=== PATIENT | male | born 1965 | race Caucasian/White ===

== ENCOUNTER 2016-12-29 17:55 | Observation (INO) | payer OTHER ==
[2016-12-29] VITALS (8 sets, daily range): BP systolic 126–167; BP diastolic 74–105; PULSE 73–90; RESP 15–21; O2SAT 94–98
[~2016-12-29] VITALS: Ht 172.7 cm; Wt 103.2 kg
--- NOTE | 2016-12-29 17:58 | ED.REPORT ---
HPI-General Illness Date of Service Dec 29, 2016 ED Provider: Dr. Shila Suarez MD A 51 year old male with a history of hyperlipidemia presents to the ED complaining of chest pain that began 20 minutes prior to arrival. Associated symptoms include SOB, back pain and neck pain. Patient was reportedly sitting watching TV when his symptoms began. The SOB is exacerbated by deep breath. Pain has been constant since onset. He rates his current pain as an 8/10 and the pain radiates from his chest across his shoulders, more so on the right.Patient currently takes Simvastatin. He denies any recent cough, fever, or chills. Nursing Notes Stated Complaint: POSSIBLE HEART ATTACK Nursing Notes Reviewed: Yes Allergies: Coded Allergies: No Known Allergies (Unverified , 12/29/16) Scheduled Simvastatin (Simvastatin) 40 Mg Tablet 40 MG PO HS General Time Seen by MD: 17:59 Chief Complaint Chest pain Hx Obtained From: Patient Arrived By: Walk-in Sudden in Onset?: Yes Onset Occurred: 16 - 30 minutes ago (20 min) Symptom Duration: Since onset Location: : Back: Chest: Neck Quality: Painful Radiation: : Shoulder Severity: Current: Pain level 8 out of 10 Severity: Maximum: Pain level 8 out of 10 Associated with: Reports: Chest pain, Difficulty breathing, Shortness of breath Pertinent Negative: Pt denies other symptoms Recent Healthcare: No recent doctor visit, No recent hospitalization Past Medical History Past Medical History Hyperlipidemia Past Surgical History Reports: Tonsillectomy Smoking History Light Tobacco Smoker (Chews Tobacco) Social History Other Social History: Local resident Ambulatory Status Independent Review of Systems Full Review of Systems Constitutional: Denies: Chills, Fever Respiratory: Reports: Shortness of breath, Denies: Non-productive cough Cardiovascular: Reports: Chest pain GI: Denies: Abdominal pain, Nausea, Vomiting Musculoskeletal: Reports: Back pain, Joint swelling (Pain radiates to his shoulders), Neck pain Neurologic: Denies: Change LOC Complete sys rev & neg: except as marked. Physical Exam BP 1803 167/105 Vital Signs Vital Signs Date Time Temp Pulse Resp B/P Pulse Ox O2 Delivery O2 Flow Rate FiO2 12/29/16 21:12 80 16 132/77 97 Room Air 12/29/16 20:47 75 15 126/74 97 Room Air 12/29/16 19:36 73 21 143/85 96 Room Air 12/29/16 18:27 82 15 130/74 98 Nasal Cannula 2 12/29/16 18:10 90 20 165/103 98 Nasal Cannula 2 167/105 12/29/16 18:03 37.1 83 19 167/105 97 Room Air Initial VS: Reviewed Neck: Supple, Non-tender, Full range of motion Neurologic: Alert, Oriented, Nonfocal Psychiatric: Mood/affect normal, Behavior normal, Normal thought content General/Constitutional: Awake, Alert Distress / Hydration: Positive: Distress mild Head / Eyes: Atraumatic, Normocephalic, PERRL Respiratory / Chest: Atraumatic RESPIRATORY: Patient has difficulty catching breath due to pain Cardiovascular: Heart rate NL, Regular rhythm, Heart sounds NL CARDIO: hypertensive Abdomen: Atraumatic, Soft Upper Extremities Upper Extremity / MS: Atraumatic, Inspection NL, Neurologic intact, Vascular intact Lower Extremity / Pelvis / MS: Atraumatic, Neurologic intact, Vascular intact LOWER EXTREMITIES: No evidence of lower extremity edema Skin: Atraumatic, Color NL, Warm Color / Condition: Positive: Diaphoresis present Interpretation & Diagnostics Lab Results Interpretation Result Diagram: 12/29/16 1806 12/29/16 1806 Test 12/29/16 18:06 12/29/16 20:00 White Blood Count 11.1th/mm3 (3.8-10.1) Red Blood Count 4.62mil/mm3 (4.40-5.80) Hemoglobin 14.9g/dL (13.8-17.2) Hematocrit 42.4% (41.0-50.0) Mean Corpuscular Volume 91.8fL (81-100) Mean Corpuscular Hemoglobin 32.3pg (27.0-35.0) Mean Corpuscular Hemoglobin Concent 35.1% (32.0-37.0) Red Cell Distribution Width 12.3% (12.3-15.4) Platelet Count 206bil/L (150-400) Neutrophils (%) (Auto) 62.8% (40-74) Lymphocytes (%) (Auto) 25.0% (14-46) Monocytes (%) (Auto) 8.6% (4-12) Eosinophils (%) (Auto) 2.9% (0-5) Basophils (%) (Auto) 0.4% (0-3) Sodium Level 138mEq/L (134-144) Potassium Level 3.7mEq/L (3.5-5.2) Chloride Level 101mEq/L (97-108) Carbon Dioxide Level 21mmol/L (18-29) Blood Urea Nitrogen 10mg/dL (6-24) Creatinine 0.78mg/dL (0.76-1.27) Estimat Glomerular Filtration Rate 112mL/min (>59) Glucose Level 89mg/dL (60-99) Calcium Level 8.6mg/dL (8.5-10.1) Magnesium Level 2.2mg/dL (1.6-2.6) Total Bilirubin 0.7mg/dL (0.0-1.2) Aspartate Amino Transf (AST/SGOT) 27U/L (0-50) Alanine Aminotransferase (ALT/SGPT) 23U/L (0-44) Alkaline Phosphatase 68U/L (25-150) Total Protein 7.6g/dL (6.4-8.4) Albumin 4.5g/dL (3.4-5.0) Hold Knutson Top Tube Received (Received) Troponin T < 0.010ug/L (0.0-0.011) ECG Interpretation ECG Interpretation: Normal sinus rhythm Rate 81 Time: 18:01 Interpreted by: ED physician ECG Interpretation: Rate 70 Sinus Rhythm No changes No ischemia Time: 20:33 Interpreted by: ED physician Repeat ECG: Repeat ECG unchanged CT Abd / Pelvis Interpretation IMPRESSION: 1. No evidence of aortic dissection or aortic aneurysm. 2. 2 mm nonobstructing left renal stone. 3. No acute lung opacities. Dictated by: Tracy Campbell MD, PhD on 12/29/2016 at 18:34 Study type: Abdominal CT IV contrast, Abdom CT oral contrast Interpretation / Wet Read by: Interpret - Radiologist Re-Eval/Medical Decision Med Decision/Clinical Course 51-year-old nonsmoker with significant hypertension hypercholesterolemia presents with acute onset chest pain radiating through the chest through to back and up to his head. Initial enzymes and EKGs are unremarkable. CT scan rules out aortic dissection. Pain is resolved after 4 nitroglycerin. On further questioning he has had similar symptoms over the last month or so with decreasing effort required prior to developing pain and this morning it did develop at rest. He has also had increasing fatigue and increasing exertional dyspnea. Given history with increasing symptoms, and this morning symptoms occurring at rest, I would like to keep him in the hospital for additional observation and cardiac risk stratification tomorrow. Nitropaste is placed in the emergency department and he is given subcutaneous Lovenox. Time of Eval: 19:30 Patient Status: Condition resolved Re-Evaluation/Progress Note: Patient is rechecked. His symptoms have resolved. He is informed of his results and diagnosis. Recommendation for stress test is given. All of the patient's questions are addressed. He understands and agrees with the treatment plan to admit. Consultation : Referral / Consult Name: David Garcia MD Call Returned at: 20:33 Document Control Supervisor: Will see patient, Agrees with eval, Agrees with plan, Accepts admit Counseled Regarding: Diagnosis, Lab results, Need for admission Discharge & Departure Primary Impression: Acute coronary syndrome Disposition: ADMITTED TO HOSPITAL Discharge Condition All VS Reviewed: Yes Condition: Stable Referrals: Polo Méndez MD (PCP) Ayeshaibbill Attestation Portions of this note were transcribed by Anastasia Dyer. I, Dr. Suarez personally performed the history, physical exam and medical decision-making; I reviewed and confirmed the accuracy of the information in the transcribed note. Signed by: Melinda Kelly, 12/29/16 2100. copies to: Polo Méndez MD, Shawna L MD Dec 29, 2016 17:58 ANASTASIA DYER Dec 29, 2016 18:05
[2016-12-29 18:14] LABS: BASOPHILS % (AUTO) 0.4 % (0-3); EOSINOPHILS % (AUTO) 2.9 % (0-5); MONOCYTES % (AUTO) 8.6 % (4-12); Mean Corpuscular Hemoglobin 32.3 pg (27.0-35.0); Mean Corpuscular Volume 91.8 fL (81-100); NEUTROPHILS % (AUTO) 62.8 % (40-74); Platelet Count 206 bil/L (150-400)
--- NOTE | 2016-12-29 18:41 | DRSVH ---
PROCEDURE: CT ANG CHEST/ABD W/WO CONTRAST ([id number]) INDICATIONS: acute Chest pain TECHNIQUE: Precontrast 5 mm thick sections acquired from the lung apices to the iliac crests. After the adminis tration of intravenous contrast, 3 mm thick sections again acquired from the lung apices to the iliac crests. 3-dimensional maximum intensity projection (MIP) oblique sagittal and coronal reformats wer e then acquired, and/or 3-dimensional volume rendering reformats. For radiation dose reduction, the following was used: automated exposure control. COMPARISON: None. FINDINGS: Image quality: Excellent. AORTA: Intramural hematoma: Absent Maximum hematoma thickness: Not applicable Focal contrast enhancement: Intramural blood pool (< 2 mm neck or imperceptible communication with aortic lumen): Absent. Ulcer-like projection (broad communication with aortic lumen > 3 mm): Absent. Dissection: Absent Anibal classification: Not applicable Maximum aortic diameter: 3.1 cm. [If Anibal A dissection, > 5.0 cm has a poorer prognosis. If [place] B dissection, > 4.0 cm has a poorer prognosis.] Periaortic hematoma: Absent. CHEST: Lungs and pleura: No acute airspace opacities. No pleural effusions or pneumothorax. Central and p eripheral airways are patent and normal in caliber. Mediastinum: Heart size is normal. No pericardial effusion. No mediastinal or hilar adenopathy by size criteria. Central pulmonary arteries are normal in size. Esophagus is normal in caliber. No h iatal hernias. Bones and chest wall: No axillary adenopathy by size criteria. Thyroid gland is within normal limit s. No suspicious bony lesions. No vertebral body compression fractures. ABDOMEN: Vasculature: Celiac trunk and mesenteric arteries are patent. Renal arteries are also patent. Solid organs: Liver and spleen are normal in size. Gallbladder is within normal limits. Biliary sy stem is non dilated. Pancreas enhances normally. No adrenal nodules. Both kidneys are normal in si ze and enhancement, without hydronephrosis. 2 mm nonobstructing stone noted in the left kidney. Peritoneum and bowel: No free fluid or air. Bowel loops are normal in caliber and wall thickness. T he appendix is normal. Nodes and vessels: No retroperitoneal or mesenteric adenopathy by size criteria. Inferior vena cava is normal in morphology. Atherosclerotic calcifications are noted in the abdominal aorta and the vis ualized common iliac arteries. Bones: No suspicious bony lesions. No vertebral body compression fractures. Spine degenerative disc disease and facet arthropathy are noted. Miscellaneous: No ventral hernias. IMPRESSION: 1. No evidence of aortic dissection or aortic aneurysm. 2. 2 mm nonobstructing left renal stone. 3. No acute lung opacities. Dictated by: Tracy Campbell MD, PhD on 12/29/2016 at 18:34 Approved by: Tracy Campbell MD, PhD on 12/29/2016 at 18:40
[2016-12-29 18:42] LABS: TROPONIN T < 0.010 ug/L (0.0-0.011)
[2016-12-29 18:51] LABS: Magnesium 2.2 mg/dL (1.6-2.6)
[2016-12-29] MEDS ORDERED: SIMV40TA5 PO (20:09)
[2016-12-29] MEDS ORDERED: Nitroglycerin 2% 1 Gm Ointment TOPICAL ONE (20:40)
[2016-12-29] MEDS ORDERED: Atropine 1 mg/10 mL (Code) Syringe IVPUSH PRN (20:45)
[2016-12-29] MEDS ORDERED: Senna-Docusate 8.6-50 mg Tablet PO PRN (20:45)
[2016-12-29] MEDS ORDERED: Polyethylene Glycol (PEG) 17 Gm Powder PO PRN (20:45)
[2016-12-29] MEDS ORDERED: Alum-Mag Hydrox-Simeth 30 mL Suspension PO PRN (20:45)
[2016-12-29] MEDS ORDERED: Ondansetron 2 mg/mL 2 mL Inj IVPUSH PRN (20:45)
--- NOTE | 2016-12-29 22:21 | PCM.HPMED ---
Subjective Date of Service Dec 29, 2016 Primary Provider: Admitting Physician: Primary Care Physician: Polo Méndez MD Attending Physician: Admit Status: From the Emergency Department, 23-Hour Observation, Remote Telemetry Chief Complaint: Chest pain History of Present Illness: Ari Estes is a 51 year old male with Hyperlipidemia, Tobacco chewer who presents to the [facility] emergency department complaining of chest pain that began 20 minutes prior to arrival. Patient was reportedly sitting watching TV when his symptoms began. The pain started in his back around his right side that seemed to radiate to the front of his chest into his left neck, achy pain, 7/10 intensity. Associated symptoms pain exacerbated with deep breathes. Denies any diaphoresis or nausea. Pain has been constant since onset. He reported a similar but mild chest pain he experienced a month ago while cutting some wood for his Mom. Pain located left anterior chest, without any radiation, constant pain that resolved spontaneously Patient currently takes Simvastatin. He denies any recent cough, fever, or chills. Case discussed with Dr Cespedes, pain persisted but then improved with nitropaste. Troponin negative x 2 but will be admitted for a stress study Review of Systems: Pertinent positives as noted in HPI. All other systems were reviewed and are negative Allergies Coded Allergies: No Known Allergies (Unverified , 12/29/16) Home Medications From [facility], not yet confirmed Ari Estes. [id number] 1965 09/08/2016 03:30 PM Page: 10/13 nabumetone 750 mg tablet take 1 tablet by oral route 2 times every day simvastatin 40 mg tablet take 1 tablet by oral route every day in the evening PMH Hyperlipidemia Sprain of medial collateral ligament of left knee. Work related injury . Surgical History None reported Family History Brother is diabetic Father from COPD and had throat cancer. He was a smoker Social History Hx Alcohol Use: Yes ("OCCASIONAL") Hx Substance Use: No Hx Tobacco Use: Yes Smoking Status: Light Tobacco Smoker (Chews Tobacco) Living Arrangement: with Family Exam Vital Signs Vital Sign - Last Date Time Temp Pulse Resp B/P Pulse Ox O2 Delivery O2 Flow Rate FiO2 12/29/16 19:36 73 21 143/85 96 Room Air 12/29/16 18:27 2 12/29/16 18:03 37.1 Exam General: Alert, Oriented X3, Cooperative, No acute Distress Eyes: PERRLA, Scleral Anicteric Mouth: Mouth Normal, Mucous Membranes Moist/[place] Neck: Supple, no Thyromegaly, trachea central. Chest & Lungs: Clear to auscultation & percussion, No adventitious breath sounds, no crackles, no wheeze Cardiovascular: Normal S1, Normal S2, No Murmurs/Rubs/Gallops, Regular Rate/ Rhythm,(No JVD, no peripheral edema) Pulses: Radial (present and equal), Dorsalis Pedi (present and equal) Abdomen: Soft, Non-tender, Non-distended, Normoactive bowel tones. Musculoskeletal: Unremarkable. Normal range of motion, no swollen or erythematous joints Extremities: No edema, no cyanosis, no clubbing. Skin: No rashes. Warm and dry, no erythematous areas Neurological: Grossly neurologically intact, Normal Speech, Sensation Intact Lymphatic: Lymph nodes Cervical and Axillary not palpable. Lab and Diagnostics Labs Laboratory Tests Test 12/29/16 18:06 12/29/16 20:00 White Blood Count 11.1th/mm3 (3.8-10.1) Red Blood Count 4.62mil/mm3 (4.40-5.80) Hemoglobin 14.9g/dL (13.8-17.2) Hematocrit 42.4% (41.0-50.0) Mean Corpuscular Volume 91.8fL (81-100) Mean Corpuscular Hemoglobin 32.3pg (27.0-35.0) Mean Corpuscular Hemoglobin Concent 35.1% (32.0-37.0) Red Cell Distribution Width 12.3% (12.3-15.4) Platelet Count 206bil/L (150-400) Neutrophils (%) (Auto) 62.8% (40-74) Lymphocytes (%) (Auto) 25.0% (14-46) Monocytes (%) (Auto) 8.6% (4-12) Eosinophils (%) (Auto) 2.9% (0-5) Basophils (%) (Auto) 0.4% (0-3) Sodium Level 138mEq/L (134-144) Potassium Level 3.7mEq/L (3.5-5.2) Chloride Level 101mEq/L (97-108) Carbon Dioxide Level 21mmol/L (18-29) Blood Urea Nitrogen 10mg/dL (6-24) Creatinine 0.78mg/dL (0.76-1.27) Estimat Glomerular Filtration Rate 112mL/min (>59) Glucose Level 89mg/dL (60-99) Calcium Level 8.6mg/dL (8.5-10.1) Magnesium Level 2.2mg/dL (1.6-2.6) Total Bilirubin 0.7mg/dL (0.0-1.2) Aspartate Amino Transf (AST/SGOT) 27U/L (0-50) Alanine Aminotransferase (ALT/SGPT) 23U/L (0-44) Alkaline Phosphatase 68U/L (25-150) Troponin T < 0.010ug/L (0.0-0.011) < 0.010ug/L (0.0-0.011) Total Protein 7.6g/dL (6.4-8.4) Albumin 4.5g/dL (3.4-5.0) Hold Knutson Top Tube Received (Received) Result Diagram: 12/29/16 18012/29/161805 X-Rays, CTs and MRIs CT ANG CHEST/ABD W/WO CONTRAST 12/29 IMPRESSION: 1. No evidence of aortic dissection or aortic aneurysm. 2. 2 mm nonobstructing left renal stone. 3. No acute lung opacities. Dictated by: Tracy Campbell MD, PhD on 12/29/2016 at 18:34 Approved by: Tracy Campbell MD, PhD on 12/29/2016 at 18:40 Assessment & Plan Ari Estes is a 51 year old male with Hyperlipidemia presents to the [facility] emergency department complaining of chest pain 1. Acute Chest pain. Present on admission. Now resolved Risk factors for acute coronary syndrome includes age, Hyperlipidemia and nicotine dependence. Aortic dissection and Pulmonary embolism ruled out with CT scan. - monitor on telemetry - nothing by mouth after midnight - echo and exercise stress test (with Lexiscan) tomorrow - trending cardiac biomarkers 2. Hyperlipidemia. Chronic Presumed stable - checking lipids - continuing statin 3. Nicotine dependence with tobacco chewing. Cessation discussed and encouraged - Nicotine patch on patients request - Acetaminophen as needed for mild pain/fever/headache - Bowel regimen as needed - Antiemetic as needed Patient is admitted under observation status with expected length of stay less than 2 midnights due to severity of presenting symptoms, risk of adverse event, and complexity of treatment plan. . Resuscitation Status: CPR: Attempt Resuscitation David Garcia MD Dec 29, 2016 20:46
[2016-12-29] MEDS: 0.9% Sodium Chloride 1,000 ML IV SCH (22:24)
--- NOTE | 2016-12-29 23:08 | NUR ---
Admit to room 3028 @21:40 with Acute Coronary Syndrome. A&Ox3, up independent, Pain 0/10, VSS O2 Sat 97% on RA. Oriented to room and POC on whiteboard.
--- NOTE | 2016-12-29 23:18 | NUR ---
Med Rec Done in ED, verified by patient interview.
[2016-12-30] VITALS (7 sets, daily range): BP systolic 101–136; BP diastolic 58–74; PULSE 54–68; RESP 18–20; O2SAT 92–98
[2016-12-30] MEDS: Sodium Chloride LOK Flush 10 mL Syringe IVFLUSH SCH ×3 (00:05→18:02)
[2016-12-30] MEDS: Heparin 5,000 Unit/mL Inj SUBQ SCH ×3 (00:05→18:01)
[2016-12-30 02:40] LABS: BASOPHILS % (AUTO) 0.4 % (0-3); EOSINOPHILS % (AUTO) 2.2 % (0-5); MONOCYTES % (AUTO) 11.6 % (4-12); Mean Corpuscular Hemoglobin 32.5 pg (27.0-35.0); Mean Corpuscular Volume 92.7 fL (81-100); NEUTROPHILS % (AUTO) 57.8 % (40-74); Platelet Count 181 bil/L (150-400)
[2016-12-30 03:29] LABS: Creatine Kinase 323 U/L (21-232)
[2016-12-30] MEDS: 0.9% Sodium Chloride 1,000 ML IV SCH ×2 (09:11→21:41)
--- NOTE | 2016-12-30 10:13 | PCM.PNMED ---
Subjective Date of Service Dec 30, 2016 Subjective - Pt seen and examined bed side. He is AAO x 3. Not in acute distress - c/o mild chest pain on deep inspiration. Also c/o difficulty in swallowing and throat irritation with mild choking sensation. - Denies shortness of breath. Exam Vital Signs Vital Sign - Last Date Time Temp Pulse Resp B/P Pulse Ox O2 Delivery O2 Flow Rate FiO2 12/30/16 08:52 36.4 54 18 136/68 92 Room Air 12/29/16 18:27 2 Intake and Output 12/29/16 12/29/16 12/30/16 Cumulative From/Thru 15:00 23:00 07:00 12/29/16 18:03 - 12/30/16 06:37 Intake Total 641 ml 641 ml Balance 641 ml 641 ml IV Total 641 ml 641 ml # Voids 0 0 Exam General: Alert, Oriented X3, Cooperative, No acute Distress Eyes: PERRLA, Scleral Anicteric Mouth: Mouth Normal, Mucous Membranes Moist/[place] Neck: Supple, no Thyromegaly, trachea central. Chest & Lungs: Clear to auscultation & percussion, No adventitious breath sounds, no crackles, no wheeze Cardiovascular: Normal S1, Normal S2, No Murmurs/Rubs/Gallops, Regular Rate/ Rhythm,(No JVD, no peripheral edema) Pulses: Radial (present and equal), Dorsalis Pedi (present and equal) Abdomen: Soft, Non-tender, Non-distended, Normoactive bowel tones. Musculoskeletal: Unremarkable. Normal range of motion, no swollen or erythematous joints Extremities: No edema, no cyanosis, no clubbing. Skin: No rashes. Warm and dry, no erythematous areas Neurological: Grossly neurologically intact, Normal Speech, Sensation Intact Lymphatic: Lymph nodes Cervical and Axillary not palpable. IVs and Medications Medications Reviewed: Medications were reviewed in detail Lab and Diagnostics Result Diagram: 12/30/165 12/30/16234 X-Rays, CTs and MRIs CT ANG CHEST/ABD W/WO CONTRAST 12/29 IMPRESSION: 1. No evidence of aortic dissection or aortic aneurysm. 2. 2 mm nonobstructing left renal stone. 3. No acute lung opacities. Dictated by: Tracy Campbell MD, PhD on 12/29/2016 at 18:34 Approved by: Tracy Campbell MD, PhD on 12/29/2016 at 18:40 Assessment & Plan 51 year old male with Hyperlipidemia presents to the [facility] emergency department complaining of chest pain 1. Acute Chest pain. Present on admission. Now resolved Risk factors for acute coronary syndrome includes age, Hyperlipidemia and nicotine dependence. Aortic dissection and Pulmonary embolism ruled out with CT scan. - monitor on telemetry - nothing by mouth for test. Will resume diet after stress test. - echo and exercise stress test (with Lexiscan) later today - troponin x 2: negative 2. Hyperlipidemia. Chronic - Lipid panel: TC: 158, LDL: 94, T - continuing statin 3. Nicotine dependence with tobacco chewing. Cessation discussed and encouraged - Nicotine patch on patients request - Acetaminophen as needed for mild pain/fever/headache - Bowel regimen as needed - Antiemetic as needed Patient is admitted under observation status with expected length of stay less than 2 midnights due to severity of presenting symptoms, risk of adverse event, and complexity of treatment plan. . Resuscitation Status: CPR: Attempt Resuscitation John Paul Ward MD Dec 30, 2016 10:13
--- NOTE | 2016-12-30 14:07 | NUR ---
Social Work: Screening Data: Pt is a 51 y/o male admitted for acute coronary syndrome. Pt's PCP is Dr Méndez, pt's insurance is [employer]. EMR reviewed. No d/c planning needs anticipated at this time. HEATING MECHANIC will continue to follow if needs arise. Assessment: Pt who is independent at baseline. Plan: Pt will d/c home via POV when medically stable. No d/c planning needs anticipated at this time. HEATING MECHANIC will continue to follow if needs arise. THOMAS Moreno
--- NOTE | 2016-12-30 15:55 | DRSVH ---
[facility] [address] [place] [address] Echocardiogram Report Name: CHRISTOPHER GEORGE MStudy Date: 12/30/2016 Height: 68 in Hospital Exam Location: [facility] Weight: 225 lb Gender: Male BSA: 2.1 m2 : 1965 Age: 51 yrs BP: 119/74 mmHg Reason For Study: Chest pain Ordering Physician: HOSPITALIST [facility] Performed By: Abdiel Jenkins Referring Physician: CORDELL CANTOR Interpretation Summary Normal both left and right ventricular size and function. The ejection fraction is 60-65%. Normal both atria. Trace mitral regurgitation. Procedure: A two-dimensional transthoracic echocardiogram with color flow and Doppler was performed. The study quality was technically adequate. There is no prior echocardiogram noted for this patient. The patient was in normal sinus rhythm during the exam. Left Ventricle: The left ventricle is normal in size, wall thickness, and systolic function without any focal wall motion abnormalities. The ejection fraction is estimated to be 60-65%. Assessment of diastolic parameters indicates normal left ventricular diastolic function and normal filling pressures. Right Ventricle: The right ventricle is normal in size, thickness and function. Atria: Both atria are normal in size. The interatrial septum is intact with no evidence for an atrial septal defect. Mitral Valve: The mitral valve is normal. There is trace mitral regurgitation. Aortic Valve: The aortic valve is normal in structure and function. No aortic regurgitation is present. Tricuspid Valve: The tricuspid valve is normal. Pulmonary artery pressures cannot be estimated because of the lack of a measurable TR jet velocity. There is a trace or physiologic amount of tricuspid regurgitation. Pulmonic Valve: The pulmonic valve leaflets are thin and pliable; valve motion is normal. There is no pulmonic valvular regurgitation. Great Vessels: The aortic root is normal size. The dimensions of the ascending aorta are normal. The pulmonary artery is normal size. The IVC is of normal diameter and collapses greater than 50% with a sniff. This suggests a low right atrial pressure of 3 mm Hg. Pericardium/ Pleura There is no pericardial effusion. There is no pleural effusion. MMode/2D Measurements & Calculations LVIDd: 5.0 cm RA long axis LVOT diam: 2.2 cm LVIDs: 2.8 cm LA A2 area: 17.1 cm AoV Opening FS: 42.9 % LA A4 area: 20.2 cm RA area EPSS: 0.09 cm LA length (vol) Ao root diam IVSd: 0.94 cm : 14.4 cm LVPWd: 0.88 cm LA vol: 54.3 ml RA vol asc Aorta Diam LA vol index : 31.5 ml RA Ao Arch Diam (Prox : 14.6 mm2 Trans): 3.1 cm IVC diam: 1.0 cm LV david. diameter/BSA LV sys. diameter/BSA RVD1 (basal) RVD2 (mid): 3.3 cm (cm/m^2): 2.3 (cm/m^2): 1.3 TAPSE: 2.4 cm Doppler Measurements & Calculations Ao V2 max MV E max hayder MV E/A: 1.5 PA V2 max : 152.5 cm/sec : 91.0 cm/sec Med Peak E' Hayder : 80.2 cm/sec Ao max P.3 mmHg MV A max hayder PA mean PG Ao mean P.6 mmHg : 59.7 cm/sec E/E' med: 14.7 : 1.4 mmHg LVOT Max Hayder Lat Peak E' Hayder : 102.6 cm/sec E/E' lat: 8.5 DANIELLA(I,D): 2.5 cm E/e' average: 11.6 sev ratio: 0.67 Pulm A Revs Dur MV dec time: 0.21 sec Ao V2 mean LV V1 max PG PA V2 mean : 100.0 cm/sec : 55.1 cm/sec Ao V2 VTI: 33.2 cmLV V1 VTI: 22.1 cm DANIELLA(V,D): 2.5 cm2 DANIELLA indexed to BSA (cm^2/m^2): 1.2 Electronically signed by: Angel Alvarado on Reading Physician:12/30/2016 11:29 AM
--- NOTE | 2016-12-30 16:06 | DRSVH ---
PROCEDURE: 1 DAY TREADMILL STRESS TEST Rest and exercise myocardial perfusion SPECT with gated imaging and ejection fraction RADIOPHARMACEUTICAL: 10.0 mCi Tc-99m tetrafosmin IV at rest and 31.2 mCi Tc-99m tetrafosmin IV at pea k exercise. Goy-sut-vhqfjaub was performed. INDICATIONS: 51 year-old male with chest pain. The patient has hyperlipidemia.. TECHNIQUE: Radiopharmaceutical was injected at peak stress test, and also at rest. SPECT images wer e obtained. SPECT myocardial perfusion images were displayed in short axis, horizontal long axis, an d vertical long axis views. Gated images were reviewed using [employer] software. COMPARISON: [facility], MYOCARD PERF SPECT MULT, MIBI, 02/05/2013, 9:22. CARDIAC STRESS: A standard Antoni treadmill exercise tolerance test was performed by the patient under the supervision of an attending staff. The patient exercised for 12 minutes and 4 seconds; functional aerobic impai rment (TASHA) is -13 %. Hemodynamic data: There is normal blood pressure and heart rate response to exercise stress. Patien t achieved 96% of maximum predicted heart rate at peak exercise. Symptoms: Patient denied chest pain during exercise. EKG: No diagnostic EKG changes of ischemia; frequent PVCs. FINDINGS: Raw data: There is good myocardial labeling by radiotracer. No significant motion artifacts. Left ventricle function: Gated images demonstrate normal left ventricle wall thickening. No segment al wall motion abnormality. No transient ischemic dilation. The left ventricle resting end-diastoli c volume is normal. Left ventricle stress ejection fraction is greater than 70%; normal values are a aly 45%. Myocardial perfusion: There is normal distribution of activity in the left and right ventricular karen cardium. No fixed or reversible perfusion defects. Comparisons prior examinations: Compared to the last admission on , there is no significant c hange. IMPRESSION: 1. Normal myocardial perfusion images. 2. Normal left ventricular volume and systolic function. 3. Above average exercise capacity. No chest pain or diagnostic EKG changes for ischemia. PQRS ATTESTATIONS: Measure 322 - Is this imaging test primarily performed on a low-risk surgery patient for preoperative evaluation within 30 days preceding their low-risk non-cardiac surgery? Low-risk surgery is defined as cardiac or myocardial infarction less than 1%, including (but not limited to) endoscopic pr ocedures, superficial procedures, cataract surgery, and excisional breast surgery: Answer: No Measure 323 - Is this imaging test performed primarily for the monitoring of an asymptomatic patient who had percutaneous coronary intervention on the visit date or within 2 years of the visit date? An swer: No Measure 324 - Is this imaging test performed primarily for the initial detection and risk assessment on an asymptomatic, low coronary heart disease patient? Low CHD risk definition = clinicians should consider the maximum number of available patient factors used to estimate risk based on [place] (A TP III criteria), typically age, gender, diabetes, smoking status, and use of blood pressure medicati on, and integrate age appropriate estimates for missing elements, such as LDL or standard blood press ure. Answer: No Dictated by: Jasmina Santacruz M.D. on 12/30/2016 at 16:01 Approved by: Jasmina Santacruz M.D. on 12/30/2016 at 16:04
--- NOTE | 2016-12-30 18:44 | NUR ---
Stress Test: Patient had cardiac stress test today. Per MD the test result was normal. Patient has had no c/o chest pain today. He has been up ad blair today in his room and took a shower independently.
--- NOTE | 2016-12-30 23:26 | NUR ---
activity Pt alert and oriented x4, up independently in room. No dizziness, chest pain or SOB. Will continue to monitor.
[2016-12-31] MEDS: Sodium Chloride LOK Flush 10 mL Syringe IVFLUSH SCH ×2 (00:02→08:17)
[2016-12-31] MEDS: Heparin 5,000 Unit/mL Inj SUBQ SCH ×2 (00:02→08:19)
[2016-12-31 01:52] VITALS: BP 105/64; PULSE 53; RESP 18; O2SAT 95
[2016-12-31 06:12] VITALS: PULSE 59
[2016-12-31 06:50] VITALS: BP 109/66; PULSE 54; RESP 18; O2SAT 94
--- NOTE | 2016-12-31 08:45 | PCM.DIMED ---
Discharge Instructions Date of Service Dec 31, 2016 Dates of Hospitalization Dec 29, 2016 at 21:13 Discharge Diagnosis Discharge Diagnosis Atypical chest pain. Diet Heart Healthy Call your provider Fever or Chills, Shortness of breath, Bleeding, Chest pain, Vomitting, Excessive diarrhea, Weakness (unilateral) Patient Instructions You admitted with chest pain. Stress test and ECHO cardiogram is normal. The most likely reason for your chest pain is musculoskeletal. Follow-up with PCP in: 1 week John Paul Ward MD Dec 31, 2016 08:45
--- NOTE | 2016-12-31 08:49 | PCM.DC.MED ---
Discharge Summary Date of Service Dec 31, 2016 Dates of Hospitalization Date of Hospital Admission Dec 29, 2016 at 21:13 Date of Discharge: Dec 31, 2016 Providers: Admitting Physician: David Garcia MD Primary Care Physician: Polo Méndez MD Attending Physician: David Garcia MD Diagnosis at Time of Discharge Diagnosis at Time of Discharge Atypical chest pain. Procedures XRay, CTs & MRIs CT ANG CHEST/ABD W/WO CONTRAST 12/29 IMPRESSION: 1. No evidence of aortic dissection or aortic aneurysm. 2. 2 mm nonobstructing left renal stone. 3. No acute lung opacities. Dictated by: Tracy Campbell MD, PhD on 12/29/2016 at 18:34 Approved by: Tracy Campbell MD, PhD on 12/29/2016 at 18:40 Cardiac Echo Impression ECHO: "Normal both left and right ventricular size and function. The ejection fraction is 60-65%. " Stress test: "1. Normal myocardial perfusion images. 2. Normal left ventricular volume and systolic function. 3. Above average exercise capacity. No chest pain or diagnostic EKG changes for ischemia." Brief History Ari Estes is a 51 year old male with Hyperlipidemia, Tobacco chewer who presents to the [facility] emergency department complaining of chest pain that began 20 minutes prior to arrival. Patient was reportedly sitting watching TV when his symptoms began. The pain started in his back around his right side that seemed to radiate to the front of his chest into his left neck, achy pain, 7/10 intensity. Associated symptoms pain exacerbated with deep breathes. Denies any diaphoresis or nausea. Pain has been constant since onset. He reported a similar but mild chest pain he experienced a month ago while cutting some wood for his Mom. Pain located left anterior chest, without any radiation, constant pain that resolved spontaneously Patient currently takes Simvastatin. He denies any recent cough, fever, or chills. Case discussed with Dr Cespedes, pain persisted but then improved with nitropaste. Troponin negative x 2 but will be admitted for a stress study Hospital Course 51 year old male with Hyperlipidemia presents to the [facility] emergency department complaining of chest pain 1. Acute Chest pain. Present on admission. Now resolved Risk factors for acute coronary syndrome includes age, Hyperlipidemia and nicotine dependence. Aortic dissection and Pulmonary embolism ruled out with CT scan. - echo and exercise stress test were normal - troponin x 3: negative 2. Hyperlipidemia. Chronic - Lipid panel: TC: 158, LDL: 94, T - continuing statin 3. Nicotine dependence with tobacco chewing. - Cessation discussed and encouraged - Nicotine patch on patients request . Exam Vital Signs (Last) Date Time Temp Pulse Resp B/P Pulse Ox O2 Delivery O2 Flow Rate FiO2 12/31/16 06:50 36.2 54 18 109/66 94 Room Air 12/29/16 18:27 2 Exam General: Alert, Oriented X3, Cooperative, No acute Distress Eyes: PERRLA, Scleral Anicteric Mouth: Mouth Normal, Mucous Membranes Moist/Old Stine Neck: Supple, no Thyromegaly, trachea central. Chest & Lungs: Clear to auscultation & percussion, No adventitious breath sounds, no crackles, no wheeze Cardiovascular: Normal S1, Normal S2, No Murmurs/Rubs/Gallops, Regular Rate/ Rhythm,(No JVD, no peripheral edema) Pulses: Radial (present and equal), Dorsalis Pedi (present and equal) Abdomen: Soft, Non-tender, Non-distended, Normoactive bowel tones. Musculoskeletal: Unremarkable. Normal range of motion, no swollen or erythematous joints Extremities: No edema, no cyanosis, no clubbing. Skin: No rashes. Warm and dry, no erythematous areas Neurological: Grossly neurologically intact, Normal Speech, Sensation Intact Lymphatic: Lymph nodes Cervical and Axillary not palpable. Test 12/29/16 18:06 12/30/16 02:35 Magnesium Level 2.2mg/dL (1.6-2.6) Total Bilirubin 0.7mg/dL (0.0-1.2) Aspartate Amino Transf (AST/SGOT) 27U/L (0-50) Alanine Aminotransferase (ALT/SGPT) 23U/L (0-44) Alkaline Phosphatase 68U/L (25-150) Total Protein 7.6g/dL (6.4-8.4) Albumin 4.5g/dL (3.4-5.0) Hold Knutson Top Tube Received (Received) White Blood Count 7.6th/mm3 (3.8-10.1) Red Blood Count 4.22mil/mm3 (4.40-5.80) Hemoglobin 13.7g/dL (13.8-17.2) Hematocrit 39.1% (41.0-50.0) Mean Corpuscular Volume 92.7fL (81-100) Mean Corpuscular Hemoglobin 32.5pg (27.0-35.0) Mean Corpuscular Hemoglobin Concent 35.0% (32.0-37.0) Red Cell Distribution Width 12.4% (12.3-15.4) Platelet Count 181bil/L (150-400) Neutrophils (%) (Auto) 57.8% (40-74) Lymphocytes (%) (Auto) 27.9% (14-46) Monocytes (%) (Auto) 11.6% (4-12) Eosinophils (%) (Auto) 2.2% (0-5) Basophils (%) (Auto) 0.4% (0-3) Sodium Level 142mEq/L (134-144) Potassium Level 3.9mEq/L (3.5-5.2) Chloride Level 105mEq/L (97-108) Carbon Dioxide Level 21mmol/L (18-29) Blood Urea Nitrogen 9mg/dL (6-24) Creatinine 0.67mg/dL (0.76-1.27) Estimat Glomerular Filtration Rate 133mL/min (>59) Glucose Level 93mg/dL (60-99) Calcium Level 8.2mg/dL (8.5-10.1) Total Creatine Kinase 323U/L (21-232) Creatine Kinase MB 2.9ng/mL (0.0-10.4) Creatine Kinase MB % % (0.0-5.0) Troponin T < 0.010ug/L (0.0-0.011) Triglycerides Level 72mg/dL (0-149) Cholesterol Level 158mg/dL (100-199) LDL Cholesterol, Calculated 94.600mg/dL (0-99) VLDL Cholesterol 14.400mg/dL HDL Cholesterol 49mg/dL (>39) Cholesterol/HDL Ratio 3.22 (0.0-4.4) Thyroid Stimulating Hormone (TSH) 3.110uIU/mL (0.450-4.500) Discharge Medications Discharge Medications Simvastatin (Simvastatin) 40 Mg Tablet 40 MG PO HS (Reported) Followup Plan Discharge Diet: Heart Healthy Patient Instructions You admitted with chest pain. Stress test and ECHO cardiogram is normal. The most likely reason for your chest pain is musculoskeletal. Follow-up with PCP in: 1 week John Paul Ward MD Dec 31, 2016 08:49
--- NOTE | 2016-12-31 10:38 | NUR ---
Discharge Nursing Note: Patient was discharged to home at 1040. Patients IV was removed intact. All of patients discharge information was reviewed with him and his questions were answered to his satisfaction. Patient was escorted to the hospital lobby by nursing staff member and he was driven home by his .
--- NOTE | 2016-12-31 10:49 | NUR ---
Social Work-discharge: Data:EMR Reviewed. Pt is on day 2 of hospitalization for acute cornary syndrome per H&P. Pt is medically stable for discharge today. Per RN notes, pt has been up independent in his room. Pt's spouse to provide transport home today. No discharge needs identified. All updated and agreeable to plan. Assessment:pt who is independent at baseline. Plan:Pt to discharge home today via POV. No discharge needs identified. All updated and agreeable to plan. THOMAS Medley
== END 2016-12-31 10:35 | disposition home or self-care (01) ==
LOC: SED 17:55 → MPC 21:13
PROVIDERS: ADMIT Hospitalist; ATTEND Hospitalist
DX: R07.89 Other chest pain (principal); I10 Essential (primary) hypertension; E78.00 Pure hypercholesterolemia, unspecified; E78.5 Hyperlipidemia, unspecified; F17.220 Nicotine dependence, chewing tobacco, uncomplicated
CPT/HCPCS: 36415; 71275; 74175; 78452; 80048; 80053; 80061; 82550; 82553; 83735; 84443; 84484; 85025; 93005; 93017; 96372; 99285; A9502; C8929; G0378; J1644; J1650; J7030; Q9967